=== PATIENT | female | born 1950 | race Caucasian/White ===

== ENCOUNTER → 2016-02-21 | Outpatient (CLI) | payer OTHER, MEDICARE | LOC: MMPC 09:00 | DX: Z79.01 Long term (current) use of anticoagulants (principal); Z51.81 Encounter for therapeutic drug level monitoring; I48.91 Unspecified atrial fibrillation; I26.99 Other pulmonary embolism without acute cor pulmonale | CPT/HCPCS: 85610 ==

== ENCOUNTER → 2016-03-20 | Outpatient (CLI) | payer OTHER, MEDICARE | LOC: MMPC 09:00 | DX: Z79.01 Long term (current) use of anticoagulants (principal); Z51.81 Encounter for therapeutic drug level monitoring; I48.91 Unspecified atrial fibrillation; I26.99 Other pulmonary embolism without acute cor pulmonale | CPT/HCPCS: 85610 ==

== ENCOUNTER → 2016-04-05 | Outpatient (CLI) | payer OTHER, MEDICARE ==
[2016-04-05 14:22] LABS: HEMOGLOBIN A1C 8.84 % (4.2-6.0); MEAN BLOOD GLUCOSE (CALC) 208.372 mg/dL
[2016-04-05 14:23] LABS: BILIRUBIN,TOTAL 0.6 mg/dL (0.3-1.2); CALCIUM 9.7 mg/dL (8.7-10.7); CREATININE 1.1 mg/dL (0.50-1.20); LDL CHOLESTEROL,CALCULATED 93.8 mg/dL; POTASSIUM 4.6 meq/L (3.8-5.2); TOTAL PROTEIN 6.6 g/dL (6.1-8.0)
== END ==
LOC: MOB LAB 11:16
DX: E10.9 Type 1 diabetes mellitus without complications (principal); Z79.4 Long term (current) use of insulin; I25.10 Atherosclerotic heart disease of native coronary artery without angina pectoris; I10 Essential (primary) hypertension; E78.5 Hyperlipidemia, unspecified
CPT/HCPCS: 36415; 80053; 80061; 83036

== ENCOUNTER → 2016-04-13 | Outpatient (CLI) | payer OTHER, MEDICARE ==
--- NOTE | 2016-04-13 12:00 | DI ---
PA /LATERAL CHEST X-RAY, 04/13/2016 11:26 AM : Clinical History: Upper respiratory infection. Previous Exam: 11/01/2014. There is no acute soft tissue or bony abnormality. The patient is status post median sternotomy and C ABG. There is cardiomegaly without CHF. There is a metallic clamp positioned over the approximate loc ation of the atrial appendage. Lungs are clear. Mediastinal structures are normal. There are no pulmo nary nodules. Readin. There is no acute infiltrate or effusion. 2. Cardiomegaly without CHF. Status post CABG and placement of a metallic clamp, probably over the a trial appendage.
== END ==
LOC: MOB RAD 11:28
PROVIDERS: ATTEND Physician Assistant
DX: R05 Cough (principal); J06.9 Acute upper respiratory infection, unspecified; I51.7 Cardiomegaly
CPT/HCPCS: 71020

== ENCOUNTER → 2016-05-08 | Outpatient (CLI) | payer OTHER, MEDICARE | LOC: MMPC 09:00 | DX: Z79.01 Long term (current) use of anticoagulants (principal); Z51.81 Encounter for therapeutic drug level monitoring; I48.91 Unspecified atrial fibrillation; I26.99 Other pulmonary embolism without acute cor pulmonale | CPT/HCPCS: 85610 ==

== ENCOUNTER → 2016-07-10 | Outpatient (CLI) | payer OTHER, MEDICARE | LOC: MMPC 09:00 | DX: Z79.01 Long term (current) use of anticoagulants (principal); Z51.81 Encounter for therapeutic drug level monitoring; I26.99 Other pulmonary embolism without acute cor pulmonale; I48.91 Unspecified atrial fibrillation | CPT/HCPCS: 85610 ==

== ENCOUNTER → 2016-07-31 | Outpatient (CLI) | payer OTHER, MEDICARE | LOC: MMPC 09:00 | DX: Z79.01 Long term (current) use of anticoagulants (principal); Z51.81 Encounter for therapeutic drug level monitoring; I48.91 Unspecified atrial fibrillation; I26.99 Other pulmonary embolism without acute cor pulmonale | CPT/HCPCS: 85610 ==

== ENCOUNTER → 2016-09-01 | Outpatient (CLI) | payer OTHER, MEDICARE ==
[2016-09-01 13:09] LABS: HEMOGLOBIN A1C 9.83 % (4.2-6.0)
[2016-09-01 14:56] LABS: CREATININE, URINE 311.7 MG/DL (15-500)
== END ==
LOC: MOB LAB 10:40
DX: E10.649 Type 1 diabetes mellitus with hypoglycemia without coma (principal); Z79.4 Long term (current) use of insulin; I10 Essential (primary) hypertension; E55.9 Vitamin D deficiency, unspecified; I25.10 Atherosclerotic heart disease of native coronary artery without angina pectoris; G47.30 Sleep apnea, unspecified; K21.9 Gastro-esophageal reflux disease without esophagitis; I48.91 Unspecified atrial fibrillation
CPT/HCPCS: 36415; 82043; 82306; 83036; 84443; 99213; G0463

== ENCOUNTER → 2016-09-11 | Outpatient (CLI) | payer OTHER, MEDICARE | LOC: MMPC 09:00 | DX: Z79.01 Long term (current) use of anticoagulants (principal); Z51.81 Encounter for therapeutic drug level monitoring; I48.91 Unspecified atrial fibrillation; I26.99 Other pulmonary embolism without acute cor pulmonale | CPT/HCPCS: 85610 ==